=== PATIENT | female | born 1995 | race African-American/Black ===

== ENCOUNTER 2022-07-13 21:56 | Emergency (ER) | payer OTHER ==
[~2022-07-13] VITALS: Ht 170.2 cm; Wt 60.9 kg
[2022-07-13 21:57] VITALS: BP 117/57
[2022-07-14 02:22] LABS: GC DNA AMPLIFICATION NEGATIVE (NEGATIVE)
== END 2022-07-14 03:35 | disposition home or self-care (01) ==
LOC: M ED 21:56
DX: O26.891 Other specified pregnancy related conditions, first trimester (principal); O34.11 Maternal care for benign tumor of corpus uteri, first trimester; O34.81 Maternal care for other abnormalities of pelvic organs, first trimester; Z3A.01 Less than 8 weeks gestation of pregnancy

== ENCOUNTER 2022-08-22 10:13 | Emergency (ER) | payer OTHER ==
[~2022-08-22] VITALS: Ht 170.2 cm; Wt 63.6 kg
[2022-08-22 12:33] VITALS: BP 123/78
== END 2022-08-22 12:34 | disposition home or self-care (01) ==
LOC: M ED 10:13
DX: O99.611 Diseases of the digestive system complicating pregnancy, first trimester (principal); R10.9 Unspecified abdominal pain; Z87.42 Personal history of other diseases of the female genital tract; Z3A.11 11 weeks gestation of pregnancy

== ENCOUNTER 2023-03-06 10:35 | Inpatient (IN) | payer OTHER ==
[2023-03-06] VITALS (24 sets, daily range): BP systolic 118–168; BP diastolic 62–95
[~2023-03-06] VITALS: Ht 167.6 cm; Wt 87.4 kg
[~2023-03-06 10:35] MED LIST: **PENDING PCN ENTRY XX SCH
[2023-03-06] MEDS ORDERED: PRENTAB9 PO (10:47)
[2023-03-06] MEDS ORDERED: HOME MED LIST COMPLETE! XX SCH (10:50)
[2023-03-06] MEDS ORDERED: PENICILLIN G POTASSIUM 5 MU IV 5 MU in D5W MINI-BAG PLUS 100 ML IV STA ×2 (10:57→22:02)
[2023-03-06] MEDS ORDERED: LACTATED RINGER'S 1000 ML IV STA (10:57)
[2023-03-06] MEDS ORDERED: OXYTOCIN DRIP 30 UNITS in IV 1 EA IV PRN ×4 (11:00)
[2023-03-06] MEDS ORDERED: TRANEXAMIC ACID INJection 1,000 MG in NS 100 ML IV PRN (11:00)
[2023-03-06] MEDS ORDERED: LIDOCAINE 1% MDV 20ML VIAL INFIL PRN (11:00)
[2023-03-06] MEDS ORDERED: LR 1,000 ML IV SCH (11:00)
[2023-03-06] MEDS ORDERED: CARBOPROST TROMETHAMINE 250 MCG/ML AMP IM PRN (11:00)
[2023-03-06] MEDS ORDERED: miSOPROStol 50MCG 1/2 TABLET SL ONE (11:50)
[2023-03-06 12:47] LABS: HEMATOCRIT 26.6 % (36.0-47.0); HEMOGLOBIN 8.3 g/dl (12.0-15.5); MEAN CORPUSCULAR HEMOGLOBIN 24.1 pg (27.0-33.0); MEAN CORPUSCULAR HGB CONC 31.2 g/dl (32.0-36.5); MEAN CORPUSCULAR VOLUME 77.1 fl (80.0-96.0); PLATELET COUNT, AUTOMATED 280 10^3/uL (150-450); RED BLOOD COUNT 3.45 10^6/uL (4.00-5.40); WHITE BLOOD COUNT 5.9 10^3/uL (4.0-10.0)
[2023-03-06 13:20] LABS: LDH LACTATE DEHYDROGENASE 238 U/L (120-246)
[2023-03-06 13:21] LABS: ALT/SGPT 12 U/L (7.0-40); AST/SGOT 17 U/L (<34); BILIRUBIN,TOTAL 0.3 MG/DL (0.3-1.2); CREATININE FOR GFR 0.55 MG/DL (0.55-1.30); GLOMERULAR FILTRATION RATE > 60.0 (>60)
[2023-03-06] MEDS: SLF 3 ML SYR IV SCH ×2 (14:00→22:00)
[2023-03-06 14:08] LABS: TOTAL PROTEIN,RANDOM URINE 73.7 MG/DL (0.0-14.0)
[2023-03-06] MEDS ORDERED: PEN G POT 3,000,000 UNIT/50 ML 3,000,000 UNIT in IV 1 EA IV SCH (15:00)
[2023-03-06] MEDS ORDERED: miSOPROStol 50MCG 1/2 TABLET PO PRN (16:25)
[2023-03-06] MEDS ORDERED: SLF 3 ML SYR IV PRN (16:50)
[2023-03-06] MEDS ORDERED: FENTANYL/ROPIVACAINE/NACL BAG 100 ML EPIDURAL SCH (20:35)
[2023-03-06] MEDS ORDERED: EPIDURAL/PCA KEYS XX PRN (20:35)
[2023-03-06] MEDS ORDERED: NALOXONE INJ 0.4MG/1ML VIAL IV PRN (20:35)
[2023-03-06] MEDS ORDERED: LR 500 ML IV PRN (20:35)
[2023-03-06] MEDS ORDERED: ePHEDrine SULFATE 25 MG/5 ML(5MG/ML) SYRINGE IVP PRN (20:35)
[2023-03-06] MEDS ORDERED: diphenhydrAMINE 50MG/ML VIAL IV PRN (20:35)
[2023-03-06] MEDS ORDERED: ONDANSETRON 4MG 2ML VIAL IV PRN (20:35)
[2023-03-07] VITALS (13 sets, daily range): BP systolic 125–160; BP diastolic 68–96; O2SAT 97–100
[2023-03-07] MEDS ORDERED: DIBUCAINE 1% OINTMENT 30GM TOP PRN (01:30)
[2023-03-07] MEDS ORDERED: MOM 30ML SUSPENSION UDC PO PRN (01:30)
[2023-03-07] MEDS ORDERED: ANUSOL HC CREAM 30GM TOP PRN (01:30)
[2023-03-07] MEDS ORDERED: DOCUSATE SODIUM 100MG CAPSULE PO PRN (01:30)
[2023-03-07] MEDS ORDERED: PEN G POT 3,000,000 UNIT/50 ML 3,000,000 UNIT in IV 1 EA IV SCH (02:05)
[2023-03-07] MEDS: IBUPROFEN 800 MG TAB PO PRN ×3 (04:23→23:56)
[2023-03-07] MEDS: SLF 3 ML SYR IV SCH ×3 (06:03→23:56)
[2023-03-07] MEDS: PRENATAL VITAMINS CHEWABLE TABLET PO SCH (08:20)
[2023-03-08] MEDS: ACETAMINOPHEN 500 MG TAB PO PRN (01:53)
[2023-03-08 02:14] VITALS: BP 150/76; O2SAT 98
[2023-03-08 06:36] VITALS: BP 128/67; O2SAT 99
[2023-03-08] MEDS: PRENATAL VITAMINS CHEWABLE TABLET PO SCH (08:31)
[2023-03-08] MEDS: SLF 3 ML SYR IV SCH ×3 (08:31→22:00)
[2023-03-08] MEDS ORDERED: INFLUENZA QUADRIVALENT PF VACCINE 0.5ML SYRINGE IM.IMMUN ONE (09:00)
[2023-03-08 10:00] VITALS: BP 141/89; O2SAT 99
[2023-03-08 14:00] VITALS: BP 129/77; O2SAT 99
[2023-03-08 18:00] VITALS: BP 136/86; O2SAT 100
[2023-03-08] MEDS: IBUPROFEN 800 MG TAB PO PRN (20:34)
[2023-03-08 22:00] VITALS: BP 138/85; O2SAT 100
[2023-03-09 02:00] VITALS: BP 139/79; O2SAT 98
[2023-03-09 06:00] VITALS: BP 138/86; O2SAT 98
[2023-03-09] MEDS: SLF 3 ML SYR IV SCH (06:00)
[2023-03-09] MEDS: PRENATAL VITAMINS CHEWABLE TABLET PO SCH (08:29)
[2023-03-09] MEDS: ACETAMINOPHEN 500 MG TAB PO PRN (08:30)
[2023-03-09] MEDS ORDERED: MEASLES,MUMPS,RUBELLA VACCINE INJ (MMR-II) SC.IMMUN ONE (09:00)
== END 2023-03-09 11:50 | disposition home or self-care (01) | DRG 807 ==
LOC: M LDO 10:35 → M LDI 11:00 → M OBS 03-07 03:50
PROVIDERS: ADMIT Advanced Practice Midwife; ATTEND Obstetrics & Gynecology
PROC: 3E0P7GC Introduction of Other Therapeutic Substance into Female Reproductive, Via Natural or Artificial Opening (ICD-10-PCS; 2023-03-06)
PROC: 10E0XZZ Delivery of Products of Conception, External Approach (ICD-10-PCS; principal; 2023-03-07)
PROC: 0HQ9XZZ Repair Perineum Skin, External Approach (ICD-10-PCS; 2023-03-07)
DX: O14.04 Mild to moderate pre-eclampsia, complicating childbirth (principal); Z37.0 Single live birth; O99.013 Anemia complicating pregnancy, third trimester; O99.824 Streptococcus B carrier state complicating childbirth; Z3A.39 39 weeks gestation of pregnancy; O70.0 First degree perineal laceration during delivery